=== PATIENT | male | born 1975 | race Caucasian/White ===

== ENCOUNTER 2018-12-01 11:11 | Emergency (ER) | payer OTHER ==
[~2018-12-01] VITALS: Ht 190.5 cm; Wt 104.3 kg
[~2018-12-01 11:11] MED LIST: FLEXERIL PO; HYDROCODONE-AP1 EAC6 PO; IBUPROFEN 800800 M1 PO
[2018-12-01] MEDS ORDERED: NORCO 5-325 TA1 EAC1 PO (11:50)
[2018-12-01] MEDS ORDERED: NAPROSYN500 MG PO (11:50)
[2018-12-01 12:43] VITALS: BP 122/78
== END 2018-12-01 12:45 | disposition home or self-care (01) ==
LOC: M.ERS 11:11
DX: M54.2 Cervicalgia (principal); G56.02 Carpal tunnel syndrome, left upper limb; G89.29 Other chronic pain